=== PATIENT | female | born 1945 | race Two or more races ===

== ENCOUNTER 2023-03-13 12:41 | Inpatient (IN) | payer MEDICARE, OTHER, SELFPAY ==
[~2023-03-13] VITALS: Ht 160 cm; Wt 98.0 kg
[2023-03-13 13:50] LABS: AMYLASE 33 U/L (30-118)
[2023-03-13 13:57] LABS: PROCALCITONIN 0.26 ng/ml
[2023-03-13 14:21] LABS: BASO # 0.1 10^3/uL (0.0-0.2); BASO % 0.3 % (0.0-1.0); EOS % 0.1 % (0.0-3.0); HEMATOCRIT 29.1 % (36.0-47.0); HEMOGLOBIN 8.7 g/dl (12.0-15.5); INR 1.12; LYMPH # 0.8 10^3/uL (1.5-5.0); LYMPH % 4.9 % (24.0-44.0); MEAN CORPUSCULAR HEMOGLOBIN 26.6 pg (27.0-33.0); MEAN CORPUSCULAR HGB CONC 29.9 g/dl (32.0-36.5); MONO # 0.9 10^3/uL (0.0-0.8); MONO % 5.5 % (2.0-8.0); NEUTROPHILS # 14.4 10^3/uL (1.5-8.5); NEUTROPHILS % 88.7 % (36.0-66.0); PLATELET COUNT, AUTOMATED 268 10^3/uL (150-450); PROTHROMBIN TIME 14.1 SECONDS (12.5-14.5); RED BLOOD COUNT 3.27 10^6/uL (4.00-5.40); WHITE BLOOD COUNT 16.2 10^3/uL (4.0-10.0)
[2023-03-13 14:22] LABS: PARTIAL THROMBOPLASTIN TIME 20.9 SECONDS (24.8-34.2)
[2023-03-13 14:22] LABS: ALBUMIN 2.8 G/DL (3.2-5.2); ALKALINE PHOSPHATASE 97 U/L (46-116); ALT/SGPT 25 U/L (7.0-40); AST/SGOT 33 U/L (<34); BILIRUBIN,DIRECT < 0.1 MG/DL (<0.4); BILIRUBIN,TOTAL 0.2 MG/DL (0.3-1.2); BLOOD UREA NITROGEN 24 MG/DL (9-23); CALCIUM LEVEL 9.1 MG/DL (8.3-10.6); CARBON DIOXIDE LEVEL 28 MMOL/L (20-31); CHLORIDE LEVEL 100 MMOL/L (98-107); CK-MB VALUE MASS 1.1 NG/ML (<3.6); CPK CREATINE PHOSPHOKINASE 53 U/L (34-145); CREATININE FOR GFR 0.96 MG/DL (0.55-1.30); GLOMERULAR FILTRATION RATE > 60.0 (>39); GLUCOSE, FASTING 185 MG/DL (74-106); MB/CK RELATIVE INDEX 2.07 (< OR =4); POTASSIUM SERUM 5.4 MMOL/L (3.5-5.1); SODIUM LEVEL 137 MMOL/L (136-145); TOTAL PROTEIN 7.3 G/DL (5.7-8.2)
[2023-03-13 14:29] LABS: MB/CK RELATIVE INDEX 2.43 (< OR =4)
[2023-03-13 15:09] LABS: APPEARANCE, URINE HAZY (CLEAR); BACTERIA, URINE AUTO 1+ (NEGATIVE); BILIRUBIN, URINE AUTO NEGATIVE (NEGATIVE); BLOOD, URINE BLOOD NEGATIVE (NEGATIVE); COLOR, URINE YELLOW (YELLOW); GLUCOSE, URINE (UA) AUTO NEGATIVE (NEGATIVE); KETONE, URINE AUTO NEGATIVE (NEGATIVE); LEUKOCYTE ESTERASE, URINE AUTO 2+ (NEGATIVE); MUCUS, URINE SMALL (NEGATIVE); NITRITE, URINE AUTO NEGATIVE (NEGATIVE); PROTEIN, URINE AUTO 2+ mg/dL (NEGATIVE); RBC, URINE AUTO 2 /HPF (0-3); SPECIFIC GRAVITY URINE AUTO 1.016 (1.002-1.035); SQUAMOUS EPITHELIAL CELL UR AU 2 /HPF (0-6); UROBILINOGEN, URINE AUTO 0.2 mg/dL (0.0-2.0); WBC, URINE AUTO 116 /HPF (0-3)
[2023-03-13] MEDS ORDERED: NS 1,000 ML IV ONE (15:45)
[2023-03-13] MEDS ORDERED: cefTRIAXone SOD 2 GM in D5W MINI-BAG PLUS 50 ML IV ONE (15:45)
[2023-03-13] MEDS ORDERED: ISOVUE-370 76% 100ML VIAL As Ordered ONE (15:54)
[2023-03-13] MEDS ORDERED: MED REC IN PROGRESS XX SCH (19:25)
[2023-03-13] MEDS ORDERED: FLUCONAZOLE 50MG TABLET PO ONE (19:40)
[2023-03-13] MEDS ORDERED: DEXTROSE 50% 50ML SYRINGE IV PRN (20:00)
[2023-03-13] MEDS ORDERED: GLUCAGON INJ 1MG VIAL SC PRN (20:00)
[2023-03-13] MEDS ORDERED: GLUCOSE 4GM CHEW TABLET PO PRN (20:00)
[2023-03-13] MEDS ORDERED: BISACODYL 10MG SUPP PR ONE (20:05)
[2023-03-13 20:56] LABS: IRON (FE) 9 UG/DL (50-170); PERCENT SATURATION 3.3 % (13.2-45.0); TOTAL IRON BINDING CAPACITY 269 UG/DL (250-425)
[2023-03-13 20:58] LABS: VITAMIN B12 LEVEL 320 PG/ML (211-911)
[2023-03-13 20:59] LABS: FERRITIN 36.5 NG/ML (7.3-270.7); FOLATE > 24.00 NG/ML (>5.4)
[2023-03-13] MEDS: DOCUSATE SODIUM 100MG CAPSULE PO SCH (21:00)
[2023-03-13] MEDS ORDERED: INSULIN LISPRO (NovoLOG) PER UNIT SC SCH (21:00)
[2023-03-13] MEDS: LR 1,000 ML IV SCH (21:43)
[2023-03-13] MEDS: LACTOBACILLUS ACIDOPHILUS CAP (BACID) PO SCH (21:47)
[2023-03-13] MEDS ORDERED: GLIP5TAB20 PO (23:25)
[2023-03-13] MEDS ORDERED: AMLO1TAB25 PO (23:25)
[2023-03-13] MEDS ORDERED: FERR32TA PO (23:25)
[2023-03-13] MEDS ORDERED: BUME0.5T2 PO (23:25)
[2023-03-13] MEDS ORDERED: LISI40TA4 PO (23:25)
[2023-03-13] MEDS ORDERED: ERGO500029 PO (23:25)
[2023-03-13] MEDS ORDERED: HYDR50TA PO (23:25)
[2023-03-13] MEDS ORDERED: OMEP40CA5 PO (23:25)
[2023-03-13] MEDS ORDERED: FOLI1TAB11 PO (23:25)
[2023-03-13] MEDS ORDERED: PRED5TA PO (23:25)
[2023-03-13] MEDS ORDERED: METF-839 PO (23:25)
[2023-03-13] MEDS ORDERED: HYDR-4571 PO (23:25)
[2023-03-13] MEDS ORDERED: ALBU2.5V10 INH (23:25)
[2023-03-13] MEDS ORDERED: NYST1POW9 TOP (23:25)
[2023-03-13] MEDS ORDERED: CLON-412 PO (23:25)
[2023-03-13] MEDS ORDERED: SENN8.6T28 PO (23:25)
[2023-03-13] MEDS ORDERED: PRAV40TA2 PO (23:25)
[2023-03-13] MEDS ORDERED: LYRI75CA PO (23:27)
[2023-03-13] MEDS ORDERED: HOME MED LIST COMPLETE! XX SCH (23:30)
[2023-03-13] MEDS ORDERED: ALBUTEROL SULFATE 2.5MG/0.5ML INH NEB SOLN INH PRN (23:55)
[2023-03-14] VITALS (8 sets, daily range): BP systolic 124–187; BP diastolic 58–77; TEMP 96.6–98.5; O2SAT 95–100
[2023-03-14] MEDS ORDERED: PILL CUTTER 1 EACH XX PRN (00:05)
[2023-03-14] MEDS: PIPERACILLIN/TAZOBACTAM SOD 3.375 GM in D5W MINI-BAG PLUS 50 ML IV SCH ×5 (00:21→23:35)
[2023-03-14] MEDS ORDERED: VANCOMYCIN HCL 1,000 MG, VIAL MATE ADAPTER 1 EACH in D5W 250 ML IV ONE ×2 (01:00→02:00)
[2023-03-14] MEDS ORDERED: MAGN400T2 PO (03:18)
[2023-03-14] MEDS: LR 1,000 ML IV SCH (03:40)
[2023-03-14 05:55] LABS: HEMATOCRIT 28.3 % (36.0-47.0); HEMOGLOBIN 8.4 g/dl (12.0-15.5); MEAN CORPUSCULAR HEMOGLOBIN 26.9 pg (27.0-33.0); MEAN CORPUSCULAR HGB CONC 29.7 g/dl (32.0-36.5); MEAN CORPUSCULAR VOLUME 90.7 fl (80.0-96.0); PLATELET COUNT, AUTOMATED 228 10^3/uL (150-450); RED BLOOD COUNT 3.12 10^6/uL (4.00-5.40); WHITE BLOOD COUNT 11.5 10^3/uL (4.0-10.0)
[2023-03-14 06:15] LABS: ALBUMIN 2.4 G/DL (3.2-5.2); ALKALINE PHOSPHATASE 82 U/L (46-116); ALT/SGPT 20 U/L (7.0-40); AST/SGOT 13 U/L (<34); BILIRUBIN,TOTAL 0.2 MG/DL (0.3-1.2); BLOOD UREA NITROGEN 23 MG/DL (9-23); CALCIUM LEVEL 8.6 MG/DL (8.3-10.6); CARBON DIOXIDE LEVEL 28 MMOL/L (20-31); CHLORIDE LEVEL 100 MMOL/L (98-107); CREATININE FOR GFR 0.96 MG/DL (0.55-1.30); GLOMERULAR FILTRATION RATE > 60.0 (>39); GLUCOSE, FASTING 61 MG/DL (74-106); MAGNESIUM LEVEL 1.7 MG/DL (1.8-2.4); POTASSIUM SERUM 4.4 MMOL/L (3.5-5.1); SODIUM LEVEL 136 MMOL/L (136-145); TOTAL PROTEIN 6.3 G/DL (5.7-8.2)
[2023-03-14] MEDS ORDERED: INSULIN LISPRO (NovoLOG) PER UNIT SC SCH (07:30)
[2023-03-14] MEDS: MAG SULF 1GM/100ML (MAG RUN) 1 GM in IV 1 EA IV SCH ×2 (08:25→10:28)
[2023-03-14] MEDS: BISACODYL 10MG SUPP PR SCH ×3 (09:00→21:00)
[2023-03-14] MEDS ORDERED: VANCOMYCIN HCL 1,000 MG, VIAL MATE ADAPTER 1 EACH in D5W 250 ML IV SCH (09:00)
[2023-03-14] MEDS: LACTOBACILLUS ACIDOPHILUS CAP (BACID) PO SCH ×2 (10:15→21:26)
[2023-03-14] MEDS: ACETAMINOPHEN TAB 650MG DOSE (2X325MG) PO PRN (10:15)
[2023-03-14] MEDS: BUMETANIDE 1 MG TAB PO SCH (10:18)
[2023-03-14] MEDS: PRAVASTATIN 20 MG TAB PO SCH (10:18)
[2023-03-14] MEDS: cloNIDine 0.1MG TABLET PO SCH ×2 (10:19→21:26)
[2023-03-14] MEDS: OMEPRAZOLE 20MG CAP PO SCH ×2 (10:20→21:26)
[2023-03-14] MEDS: FERROUS GLUCONATE 324 MG TAB PO SCH (10:21)
[2023-03-14] MEDS: **hydrALAZINE** 50 MG TAB PO SCH ×3 (10:21→21:27)
[2023-03-14] MEDS: predniSONE 5 MG TAB PO SCH (10:21)
[2023-03-14] MEDS: DOCUSATE SODIUM 100MG CAPSULE PO SCH ×2 (10:22→21:00)
[2023-03-14] MEDS: lisinopriL 40MG TAB PO SCH (10:23)
[2023-03-14] MEDS: PREGABALIN 75 MG CAP(LYRICA) PO SCH ×3 (10:23→21:27)
[2023-03-14] MEDS: FOLIC ACID 1MG TAB PO SCH (10:24)
[2023-03-14] MEDS: ENOXAPARIN 40MG/0.4ML SYRINGE (J1650 PER 10MG) SC SCH (10:28)
[2023-03-14] MEDS ORDERED: IPRATROPIUM 0.5MG/ALBUTEROL 2.5MG INH SOL UD 3ML (DUONEB) NEB PRN (11:15)
[2023-03-14 12:32] LABS: HEMOGLOBIN A1c 6.8 % (4.0-6.0)
[2023-03-14] MEDS: SENNA 8.6 MG TAB (SENOKOT) PO SCH (21:00)
[2023-03-15] VITALS (9 sets, daily range): BP systolic 109–170; BP diastolic 53–80; TEMP 97–97.7; O2SAT 87–98
[2023-03-15] MEDS: PIPERACILLIN/TAZOBACTAM SOD 3.375 GM in D5W MINI-BAG PLUS 50 ML IV SCH ×3 (05:31→17:03)
[2023-03-15 06:08] LABS: BASO % 0.3 % (0.0-1.0); EOS # 0.3 10^3/uL (0.0-0.5); EOS % 3.4 % (0.0-3.0); HEMATOCRIT 24.6 % (36.0-47.0); HEMOGLOBIN 7.3 g/dl (12.0-15.5); LYMPH % 9.9 % (24.0-44.0); MEAN CORPUSCULAR HEMOGLOBIN 26.3 pg (27.0-33.0); MEAN CORPUSCULAR HGB CONC 29.7 g/dl (32.0-36.5); MEAN CORPUSCULAR VOLUME 88.5 fl (80.0-96.0); MONO # 0.7 10^3/uL (0.0-0.8); MONO % 6.6 % (2.0-8.0); NEUTROPHILS # 7.8 10^3/uL (1.5-8.5); NEUTROPHILS % 78.9 % (36.0-66.0); PLATELET COUNT, AUTOMATED 248 10^3/uL (150-450); RED BLOOD COUNT 2.78 10^6/uL (4.00-5.40); WHITE BLOOD COUNT 9.9 10^3/uL (4.0-10.0)
[2023-03-15 06:30] LABS: C REACTIVE PROTEIN QUANTITATIV 14.3 MG/DL (<1.0)
[2023-03-15 06:31] LABS: CALCIUM LEVEL 8.2 MG/DL (8.3-10.6); CREATININE FOR GFR 1.14 MG/DL (0.55-1.30); GLOMERULAR FILTRATION RATE 49.3 (>39); POTASSIUM SERUM 4.2 MMOL/L (3.5-5.1)
[2023-03-15] MEDS: LACTOBACILLUS ACIDOPHILUS CAP (BACID) PO SCH ×2 (09:12→20:44)
[2023-03-15] MEDS: ENOXAPARIN 40MG/0.4ML SYRINGE (J1650 PER 10MG) SC SCH (09:12)
[2023-03-15] MEDS: BUMETANIDE 1 MG TAB PO SCH (09:12)
[2023-03-15] MEDS: BISACODYL 10MG SUPP PR SCH (09:13)
[2023-03-15] MEDS: OMEPRAZOLE 20MG CAP PO SCH ×2 (09:13→20:45)
[2023-03-15] MEDS: **hydrALAZINE** 50 MG TAB PO SCH ×3 (09:13→22:00)
[2023-03-15] MEDS: FOLIC ACID 1MG TAB PO SCH (09:14)
[2023-03-15] MEDS: cloNIDine 0.1MG TABLET PO SCH ×2 (09:14→20:46)
[2023-03-15] MEDS: lisinopriL 40MG TAB PO SCH (09:14)
[2023-03-15] MEDS: predniSONE 5 MG TAB PO SCH (09:15)
[2023-03-15] MEDS: DOCUSATE SODIUM 100MG CAPSULE PO SCH ×2 (09:15→20:45)
[2023-03-15] MEDS: PREGABALIN 75 MG CAP(LYRICA) PO SCH ×3 (09:15→20:45)
[2023-03-15] MEDS: FERROUS GLUCONATE 324 MG TAB PO SCH (09:15)
[2023-03-15] MEDS: PRAVASTATIN 20 MG TAB PO SCH (09:16)
[2023-03-15] MEDS: SENNA 8.6 MG TAB (SENOKOT) PO SCH (20:45)
[2023-03-16] MEDS: PIPERACILLIN/TAZOBACTAM SOD 3.375 GM in D5W MINI-BAG PLUS 50 ML IV SCH ×2 (00:33→05:54)
[2023-03-16 03:45] VITALS: BP 137/65; TEMP 97.3; O2SAT 100
[2023-03-16] MEDS: **hydrALAZINE** 50 MG TAB PO SCH ×3 (05:54→21:26)
[2023-03-16 06:32] LABS: BASO % 0.3 % (0.0-1.0); EOS # 0.3 10^3/uL (0.0-0.5); EOS % 3.9 % (0.0-3.0); HEMATOCRIT 25.9 % (36.0-47.0); HEMOGLOBIN 7.7 g/dl (12.0-15.5); LYMPH # 1.2 10^3/uL (1.5-5.0); MEAN CORPUSCULAR HEMOGLOBIN 26.5 pg (27.0-33.0); MEAN CORPUSCULAR HGB CONC 29.7 g/dl (32.0-36.5); MONO # 0.7 10^3/uL (0.0-0.8); MONO % 8.3 % (2.0-8.0); NEUTROPHILS # 6.3 10^3/uL (1.5-8.5); NEUTROPHILS % 72.8 % (36.0-66.0); PLATELET COUNT, AUTOMATED 263 10^3/uL (150-450); RED BLOOD COUNT 2.91 10^6/uL (4.00-5.40); WHITE BLOOD COUNT 8.7 10^3/uL (4.0-10.0)
[2023-03-16 07:05] LABS: BLOOD UREA NITROGEN 21 MG/DL (9-23); CALCIUM LEVEL 8.4 MG/DL (8.3-10.6); CARBON DIOXIDE LEVEL 29 MMOL/L (20-31); CHLORIDE LEVEL 103 MMOL/L (98-107); CREATININE FOR GFR 0.95 MG/DL (0.55-1.30); GLOMERULAR FILTRATION RATE > 60.0 (>39); GLUCOSE, FASTING 132 MG/DL (74-106); MAGNESIUM LEVEL 1.9 MG/DL (1.8-2.4); POTASSIUM SERUM 4.2 MMOL/L (3.5-5.1); SODIUM LEVEL 138 MMOL/L (136-145)
[2023-03-16] MEDS ORDERED: BISACODYL 10MG SUPP PR SCH (09:00)
[2023-03-16] MEDS: ENOXAPARIN 40MG/0.4ML SYRINGE (J1650 PER 10MG) SC SCH (09:52)
[2023-03-16] MEDS: PREGABALIN 75 MG CAP(LYRICA) PO SCH ×3 (09:52→21:25)
[2023-03-16] MEDS: predniSONE 5 MG TAB PO SCH (09:52)
[2023-03-16] MEDS: lisinopriL 40MG TAB PO SCH (09:52)
[2023-03-16] MEDS: FERROUS GLUCONATE 324 MG TAB PO SCH (09:52)
[2023-03-16] MEDS: FOLIC ACID 1MG TAB PO SCH (09:52)
[2023-03-16] MEDS: LACTOBACILLUS ACIDOPHILUS CAP (BACID) PO SCH ×2 (09:54→21:25)
[2023-03-16] MEDS: PRAVASTATIN 20 MG TAB PO SCH (09:55)
[2023-03-16] MEDS: OMEPRAZOLE 20MG CAP PO SCH ×2 (09:55→21:25)
[2023-03-16] MEDS: cloNIDine 0.1MG TABLET PO SCH ×2 (09:55→21:25)
[2023-03-16] MEDS: BUMETANIDE 1 MG TAB PO SCH (09:55)
[2023-03-16 10:00] VITALS: BP 154/62; TEMP 97.5; O2SAT 99
[2023-03-16] MEDS: INSULIN LISPRO (NovoLOG) PER UNIT SC SCH ×3 (12:46→20:21)
[2023-03-16] MEDS: AUGMENTIN 875 MG TAB PO SCH ×2 (12:46→21:25)
[2023-03-16] MEDS: NORCO, ANEXSIA 5/325MG TABLET (HYDROcodone/ACETAMINOPHEN) PO PRN (14:26)
[2023-03-16] MEDS ORDERED: METOPROLOL TART 50 MG TAB PO ONE (15:45)
[2023-03-16 16:00] VITALS: BP 137/63; TEMP 97; O2SAT 100
[2023-03-16 20:00] VITALS: BP 150/65; TEMP 97.7; O2SAT 97
[2023-03-17] MEDS: NORCO, ANEXSIA 5/325MG TABLET (HYDROcodone/ACETAMINOPHEN) PO PRN (00:28)
[2023-03-17 06:00] VITALS: BP 147/65; TEMP 97.2; O2SAT 98
[2023-03-17] MEDS: **hydrALAZINE** 50 MG TAB PO SCH ×3 (06:48→22:00)
[2023-03-17 07:24] VITALS: BP 153/69; TEMP 96.8; O2SAT 98
[2023-03-17] MEDS: INSULIN LISPRO (NovoLOG) PER UNIT SC SCH ×4 (08:54→21:00)
[2023-03-17] MEDS: ENOXAPARIN 40MG/0.4ML SYRINGE (J1650 PER 10MG) SC SCH (08:55)
[2023-03-17] MEDS: PRAVASTATIN 20 MG TAB PO SCH (08:55)
[2023-03-17] MEDS: PREGABALIN 75 MG CAP(LYRICA) PO SCH ×3 (08:55→22:09)
[2023-03-17] MEDS: FOLIC ACID 1MG TAB PO SCH (08:55)
[2023-03-17] MEDS: lisinopriL 40MG TAB PO SCH (08:55)
[2023-03-17] MEDS: FERROUS GLUCONATE 324 MG TAB PO SCH (08:55)
[2023-03-17] MEDS: predniSONE 5 MG TAB PO SCH (08:55)
[2023-03-17] MEDS: cloNIDine 0.1MG TABLET PO SCH ×2 (08:58→22:08)
[2023-03-17] MEDS: BUMETANIDE 1 MG TAB PO SCH (08:58)
[2023-03-17] MEDS: LACTOBACILLUS ACIDOPHILUS CAP (BACID) PO SCH ×2 (08:58→22:08)
[2023-03-17] MEDS: AUGMENTIN 875 MG TAB PO SCH ×2 (08:59→22:08)
[2023-03-17] MEDS: OMEPRAZOLE 20MG CAP PO SCH ×2 (08:59→22:09)
[2023-03-17 15:33] VITALS: BP 144/66; TEMP 96.7; O2SAT 99
[2023-03-17 22:00] VITALS: BP 138/64; TEMP 97.1; O2SAT 98
[2023-03-17] MEDS: METOPROLOL TART 50 MG TAB PO SCH (22:09)
[2023-03-18] MEDS: **hydrALAZINE** 50 MG TAB PO SCH ×3 (06:00→22:13)
[2023-03-18 06:24] VITALS: BP 114/54
[2023-03-18] MEDS: INSULIN LISPRO (NovoLOG) PER UNIT SC SCH ×4 (07:30→21:00)
[2023-03-18 08:19] VITALS: BP 144/75; TEMP 96.6; O2SAT 100
[2023-03-18] MEDS: ENOXAPARIN 40MG/0.4ML SYRINGE (J1650 PER 10MG) SC SCH (09:12)
[2023-03-18] MEDS: LACTOBACILLUS ACIDOPHILUS CAP (BACID) PO SCH ×2 (09:12→22:12)
[2023-03-18] MEDS: cloNIDine 0.1MG TABLET PO SCH ×2 (09:12→22:04)
[2023-03-18] MEDS: lisinopriL 40MG TAB PO SCH (09:12)
[2023-03-18] MEDS: AUGMENTIN 875 MG TAB PO SCH ×2 (09:12→22:13)
[2023-03-18] MEDS: PRAVASTATIN 20 MG TAB PO SCH (09:12)
[2023-03-18] MEDS: FOLIC ACID 1MG TAB PO SCH (09:13)
[2023-03-18] MEDS: OMEPRAZOLE 20MG CAP PO SCH ×2 (09:13→22:13)
[2023-03-18] MEDS: predniSONE 5 MG TAB PO SCH (09:13)
[2023-03-18] MEDS: BUMETANIDE 1 MG TAB PO SCH (09:16)
[2023-03-18] MEDS: PREGABALIN 75 MG CAP(LYRICA) PO SCH ×3 (09:16→22:14)
[2023-03-18] MEDS: FERROUS GLUCONATE 324 MG TAB PO SCH (09:16)
[2023-03-18 14:55] VITALS: BP 161/54; TEMP 97.9; O2SAT 96
[2023-03-18 20:02] VITALS: BP 143/46; TEMP 97.5; O2SAT 92
[2023-03-18] MEDS: METOPROLOL TART 50 MG TAB PO SCH (22:12)
[2023-03-18] MEDS: ACETAMINOPHEN TAB 650MG DOSE (2X325MG) PO PRN (22:13)
[2023-03-19] MEDS: **hydrALAZINE** 50 MG TAB PO SCH (05:44)
[2023-03-19 07:10] VITALS: BP 141/48; TEMP 97.7; O2SAT 95
[2023-03-19] MEDS: ENOXAPARIN 40MG/0.4ML SYRINGE (J1650 PER 10MG) SC SCH (09:24)
[2023-03-19] MEDS: INSULIN LISPRO (NovoLOG) PER UNIT SC SCH ×2 (09:25→13:01)
[2023-03-19] MEDS: BUMETANIDE 1 MG TAB PO SCH (09:26)
[2023-03-19] MEDS: FOLIC ACID 1MG TAB PO SCH (09:26)
[2023-03-19] MEDS: FERROUS GLUCONATE 324 MG TAB PO SCH (09:26)
[2023-03-19] MEDS: OMEPRAZOLE 20MG CAP PO SCH (09:26)
[2023-03-19] MEDS: LACTOBACILLUS ACIDOPHILUS CAP (BACID) PO SCH (09:26)
[2023-03-19] MEDS: PRAVASTATIN 20 MG TAB PO SCH (09:26)
[2023-03-19 09:27] VITALS: BP 141/48
[2023-03-19] MEDS: AUGMENTIN 875 MG TAB PO SCH (09:27)
[2023-03-19] MEDS: lisinopriL 40MG TAB PO SCH (09:27)
[2023-03-19] MEDS: predniSONE 5 MG TAB PO SCH (09:27)
[2023-03-19] MEDS: cloNIDine 0.1MG TABLET PO SCH (09:27)
[2023-03-19] MEDS: PREGABALIN 75 MG CAP(LYRICA) PO SCH (09:27)
[2023-03-19] MEDS ORDERED: RISATAB3 PO (10:27)
[2023-03-19] MEDS ORDERED: HYDR50TA PO (10:27)
[2023-03-19] MEDS ORDERED: AMOX875T2 PO (10:27)
[2023-03-19] MEDS ORDERED: LOPR1TAB6 PO (10:27)
== END 2023-03-19 13:05 | disposition home health service (06) | DRG 871 ==
LOC: M ED 12:41 → M ED INP 19:38 → ENRESERV 22:58 → M PCU 03-14 00:40 → M MS5PR 03-18 14:50
PROVIDERS: ADMIT Internal Medicine; ATTEND Internal Medicine
DX: A41.9 Sepsis, unspecified organism (principal); G93.41 Metabolic encephalopathy; J96.21 Acute and chronic respiratory failure with hypoxia; J18.9 Pneumonia, unspecified organism; J84.9 Interstitial pulmonary disease, unspecified; E87.20 Acidosis, unspecified; I50.32 Chronic diastolic (congestive) heart failure; L03.90 Cellulitis, unspecified; N39.0 Urinary tract infection, site not specified; L97.919 Non-pressure chronic ulcer of unspecified part of right lower leg with unspecified severity; L97.929 Non-pressure chronic ulcer of unspecified part of left lower leg with unspecified severity; I11.0 Hypertensive heart disease with heart failure; E78.5 Hyperlipidemia, unspecified; E11.51 Type 2 diabetes mellitus with diabetic peripheral angiopathy without gangrene; L89.152 Pressure ulcer of sacral region, stage 2; H91.93 Unspecified hearing loss, bilateral; E11.649 Type 2 diabetes mellitus with hypoglycemia without coma; D50.0 Iron deficiency anemia secondary to blood loss (chronic); E87.5 Hyperkalemia; E11.618 Type 2 diabetes mellitus with other diabetic arthropathy; B96.20 Unspecified Escherichia coli [E. coli] as the cause of diseases classified elsewhere; E66.01 Morbid (severe) obesity due to excess calories; E11.622 Type 2 diabetes mellitus with other skin ulcer; J44.9 Chronic obstructive pulmonary disease, unspecified; E83.19 Other disorders of iron metabolism; I83.11 Varicose veins of right lower extremity with inflammation; I83.12 Varicose veins of left lower extremity with inflammation; Z99.81 Dependence on supplemental oxygen; Z89.421 Acquired absence of other right toe(s); Z89.411 Acquired absence of right great toe; Z68.37 Body mass index [BMI] 37.0-37.9, adult; Z79.84 Long term (current) use of oral hypoglycemic drugs; Z79.899 Other long term (current) drug therapy; Z79.52 Long term (current) use of systemic steroids; Z88.0 Allergy status to penicillin; Z88.8 Allergy status to other drugs, medicaments and biological substances